=== PATIENT | female | born 1965 | race Hispanic/Latino ===

== ENCOUNTER → 2016-09-14 | Outpatient (CLI) | payer BC ==
--- NOTE | 2016-09-14 13:31 | Diagnostic Imaging Report ---
PROCEDURE: US Thyroid. TECHNIQUE: Multiple real-time grayscale images were obtained of the thyroid in various projections. INDICATION: Thyroid nodule. FINDINGS: The right thyroid lobe is 4.6 x 1.8 x 1.8 cm. The left lobe is 4.3 x 1.8 x 1.5 cm. The thyroid gland is homogeneous with no focal lesion seen. When compared to 06/08/15 exam, previously seen colloid cyst has resolved. No thyroid nodule is seen at this time. IMPRESSION: Unremarkable exam. Dictated by: Dictated on workstation # [id number]
== END ==
LOC: RAD 10:55
PROVIDERS: ATTEND Nurse Practitioner Family
DX: E05.90 Thyrotoxicosis, unspecified without thyrotoxic crisis or storm (principal); E04.1 Nontoxic single thyroid nodule
CPT/HCPCS: 76536

== ENCOUNTER 2017-03-21 04:32 | Emergency (ER) | payer SELFPAY ==
[~2017-03-21] VITALS: Ht 162.6 cm; Wt 87.1 kg
[2017-03-21] MEDS ORDERED: INDLA120 (04:49)
[2017-03-21] MEDS ORDERED: CITA10TA7 (04:49)
[2017-03-21] MEDS ORDERED: PRAV40TA2 (04:49)
[2017-03-21] MEDS ORDERED: PROP60CA (04:49)
[2017-03-21] MEDS ORDERED: NF-METHI10 (04:49)
[2017-03-21] MEDS ORDERED: LACTATED RINGERS 1,000 ML IV ONE (04:53)
[2017-03-21] MEDS ORDERED: ONDANSETRON 4 MG/2 ML (SDV) Z0FRAN IVP ONE (05:00)
[2017-03-21] MEDS ORDERED: HYOSCYAMINE 0.125 MG (LEVSIN) TAB SL ONE (05:00)
[2017-03-21 05:16] LABS: BASOPHILS % (AUTO) 0 % (0-10); EOSINOPHILS % (AUTO) 0 % (0-10); LYMPHOCYTES # (AUTO) 0.6 X 10^3 (1.0-4.0); LYMPHOCYTES % (AUTO) 5 % (12-44); MEAN CORPUSCULAR HEMOGLOBIN 31 PG (25-34); MEAN CORPUSCULAR HGB CONC 34 G/DL (32-36); MEAN CORPUSCULAR VOLUME 89 FL (80-99); MONOCYTES # (AUTO) 0.3 X 10^3 (0.0-1.0); MONOCYTES % (AUTO) 2 % (0-12); NEUTROPHILS # (AUTO) 11.9 X 10^3 (1.8-7.8); NEUTROPHILS % (AUTO) 93 % (42-75); PLATELET COUNT 224 10^3/uL (130-400); RED BLOOD COUNT 4.43 10^6/uL (4.35-5.85); RED CELL DISTRIBUTION WIDTH 12.1 % (10.0-14.5); WHITE BLOOD COUNT 12.8 10^3/uL (4.3-11.0)
--- NOTE | 2017-03-21 05:17 | ED GI ---
General Chief Complaint: Abdominal/GI Problems Stated Complaint: NAUSEA,DIARRHEA,VOMITING Nursing Triage Note: N/V/D Sepsis Screen: No Definite Risk Source of Information: Patient, Family Exam Limitations: Language Barrier History of Present Illness Time Seen By Provider: 04:45 Initial Comments This 51-year-old woman presents to the emergency room with complaints of vomiting, diarrhea, and epigastric discomfort since last night. Her provides much of the history as he speaks Faroese. Her epigastric pain is mild and generally when she is vomiting. She is afebrile. Her reports she has had numerous episodes of vomiting and diarrhea. Allergies and Home Medications Allergies Coded Allergies: No Known Drug Allergies (Unverified , 03/21/17) Home Medications Citalopram Hydrobromide 10 Mg Tablet, (Reported) Hyoscyamine Sulfate 0.125 Mg Tab.subl, 0.125 MG SL Q4H PRN for DIARRHEA, #10 Prescribed by: TANESHA VELIZ on 03/21/17 0607 Methimazole 10 Mg Tab, (Reported) Ondansetron 4 Mg Tab.rapdis, 4 MG SL Q4H PRN for NAUSEA/VOMITING-1ST LINE, #10 Prescribed by: TANESHA VELIZ on 03/21/17 0607 Pravastatin Sodium 40 Mg Tablet, (Reported) Propranolol HCl 120 Mg Cap, (Reported) Propranolol HCl 60 Mg Cap.sa.24h, (Reported) Review of Systems Constitutional: no symptoms reported EENTM: No Symptoms Reported Respiratory: No Symptoms Reported Cardiovascular: No Symptoms Reported Gastrointestinal: See HPI Genitourinary: No Symptoms Reported Musculoskeletal: no symptoms reported Skin: no symptoms reported Psychiatric/Neurological: No Symptoms Reported Endocrine: No Symptoms Reported Past [id number] Hx Patient Social History Alcohol Use: Denies Use Recreational Drug Use: No Smoking Status: Never a Smoker 2nd Hand Smoke Exposure: No Recent Foreign Travel: No Contact w/Someone Who Travel: No Recent Infectious Disease Expo: No Recent Hopitalizations: No Immunizations Up To Date Tetanus Booster (TDap): Unknown Seasonal Allergies Seasonal Allergies: No Surgeries History of Surgeries: Yes Surgeries: Section Respiratory History of Respiratory Disorde: No Cardiovascular History of Cardiac Disorders: Yes Cardiac Disorders: High Cholesterol, Hypertension Neurological History of Neurological Disord: No Reproductive System : No FINISH PAINTER History: Menopausal Genitourinary History of Genitourinary Disor: No Gastrointestinal History of Gastrointestinal Di: No Musculoskeletal History of Musculoskeletal Dis: Yes Musculoskeletal Disorders: Arthritis Endocrine History of Endocrine Disorders: No HEENT History of HEENT Disorders: No Cancer History of Cancer: No Psychosocial History of Psychiatric Problem: Yes Behavioral Health Disorders: Depression Integumentary History of Skin or Integumenta: No Blood Transfusions History of Blood Disorders: No Physical Exam Vital Signs VS - Last 72 Hours, by Label 03/21/17 04:49 Temp 98.0 Pulse 78 Resp 16 B/P (MAP) 133/90 (104) Pulse Ox 99 O2 Delivery Room Air Capillary Refill : Less Than 3 Seconds General Appearance: WD/WN, no apparent distress HEENT: normal ENT inspection, other (oropharynx somewhat dry) Neck: normal inspection Respiratory: lungs clear, normal breath sounds, no respiratory distress, no accessory muscle use Cardiovascular: regular rate, rhythm, no edema, no murmur Gastrointestinal: normal bowel sounds, soft, tenderness (minimal in the epigastric region) Extremities: normal inspection, no pedal edema Neurologic/Psychiatric: customer development representative II-XII nml as tested, no motor/sensory deficits, alert, normal mood/affect, oriented x 3 Skin: normal color, warm/dry Progress/Results/Core Measures Results/Orders Lab Results Laboratory Tests Test 03/21/17 05:00 Range/Units White Blood Count 12.8 H 4.3-11.0 10^3/uL Red Blood Count 4.43 4.35-5.85 10^6/uL Hemoglobin 13.5 11.5-16.0 G/DL Hematocrit 40 35-52 % Mean Corpuscular Volume 89 80-99 FL Mean Corpuscular Hemoglobin 31 25-34 PG Mean Corpuscular Hemoglobin Concent 34 32-36 G/DL Red Cell Distribution Width 12.1 10.0-14.5 % Platelet Count 224 130-400 10^3/uL Mean Platelet Volume 10.0 7.4-10.4 FL Neutrophils (%) (Auto) 93 H 42-75 % Lymphocytes (%) (Auto) 5 L 12-44 % Monocytes (%) (Auto) 2 0-12 % Eosinophils (%) (Auto) 0 0-10 % Basophils (%) (Auto) 0 0-10 % Neutrophils # (Auto) 11.9 H 1.8-7.8 X 10^3 Lymphocytes # (Auto) 0.6 L 1.0-4.0 X 10^3 Monocytes # (Auto) 0.3 0.0-1.0 X 10^3 Eosinophils # (Auto) 0.0 0.0-0.3 10^3/uL Basophils # (Auto) 0.0 0.0-0.1 10^3/uL Sodium Level 137 135-145 MMOL/L Potassium Level 5.1 H 3.6-5.0 MMOL/L Chloride Level 103 98-107 MMOL/L Carbon Dioxide Level 22 21-32 MMOL/L Anion Gap 12 5-14 MMOL/L Blood Urea Nitrogen 21 H 7-18 MG/DL Creatinine 0.79 0.60-1.30 MG/DL Estimat Glomerular Filtration Rate > 60 BUN/Creatinine Ratio 27 Glucose Level 151 H 70-105 MG/DL Calcium Level 9.4 8.5-10.1 MG/DL Total Bilirubin 1.5 H 0.1-1.0 MG/DL Aspartate Amino Transf (AST/SGOT) 29 5-34 U/L Alanine Aminotransferase (ALT/SGPT) 22 0-55 U/L Alkaline Phosphatase 86 40-136 U/L Total Protein 8.8 H 6.4-8.2 GM/DL Albumin 4.4 3.2-4.5 GM/DL Lipase 20 8-78 U/L My Orders Orders - TANESHA ALEXANDRA MD Ondansetron Injection (Zofran Injectio (03/21/17 05:00) Hyoscyamine Sl Tablet (Levsin Sl Tablet) (03/21/17 05:00) Saline Lock/Iv-Start (03/21/17 04:53) Lactated Ringers (Lr 1000 Ml Iv Solution (03/21/17 04:53) Cbc With Automated Diff (03/21/17 04:53) Comprehensive Metabolic Panel (03/21/17 04:53) Lipase (03/21/17 04:53) Medications Given in ED Current Medications Medications Dose Ordered Sig/Lucinda Route Start Time Stop Time Status Last Admin Dose Admin Hyoscyamine Sulfate 0.25 mg ONCE ONCE SL 03/21/17 05:00 03/21/17 05:01 DC 03/21/17 05:08 0.25 MG Lactated Ringer's 1,000 ml @ 0 mls/hr Q0M ONCE IV 03/21/17 04:53 03/21/17 04:54 DC 03/21/17 05:09 0 MLS/HR Ondansetron HCl 8 mg ONCE ONCE IVP 03/21/17 05:00 03/21/17 05:01 DC 03/21/17 05:08 8 MG Vital Signs/I&O Vital Sign - Last 12Hours 03/21/17 04:49 Temp 98.0 Pulse 78 Resp 16 B/P (MAP) 133/90 (104) Pulse Ox 99 O2 Delivery Room Air Blood Pressure Mean: 104 Progress Note #1: Time: 05:17 Progress Note Patient is receiving the Levsin, Zofran, and IV fluids. Labs are pending. Progress Note #2: Time: 06:05 Progress Note Patient was feeling significantly improved after medications and IV fluids. She was dismissed home with prescriptions. Departure Impression Impression: Primary Impression: Nausea vomiting and diarrhea Disposition: HOME, SELF-CARE Condition: Improved Departure-Patient Inst. Decision time for Depature: 05:59 Referrals: MIGEL WORRELL DO (PCP/Family) Primary Care Physician Patient Instructions: Diarrhea in Adolescents and Adults, Nausea and Vomiting, Adult Add. Discharge Instructions: Drink plenty of clear liquids including water, Gatorade, etc. Use your medications as prescribed. Gradually advance your diet as tolerated. All discharge instructions reviewed with patient and/or family. Voiced understanding. Scripts Ondansetron (Zofran Odt) 4 Mg Tab.rapdis 4 MG SL Q4H Y for NAUSEA/VOMITING-1ST LINE, #10 TAB Prov: TANESHA ALEXANDRA MD 03/21/17 Hyoscyamine Sulfate (Levsin-Sl) 0.125 Mg Tab.subl 0.125 MG SL Q4H Y for DIARRHEA, #10 TAB Prov: TANESHA ALEXANDRA MD 03/21/17 TANESHA ALEXANDRA MD Mar 21, 2017 05:17
[2017-03-21 05:37] LABS: ALANINE AMINOTRANSFERASE 22 U/L (0-55); ALBUMIN 4.4 GM/DL (3.2-4.5); ANION GAP 12 MMOL/L (5-14); ASPARTATE AMINO TRANSFERASE 29 U/L (5-34); BILIRUBIN,TOTAL 1.5 MG/DL (0.1-1.0); BLOOD UREA NITROGEN 21 MG/DL (7-18); BUN/CREATININE RATIO 27; CALCIUM 9.4 MG/DL (8.5-10.1); CARBON DIOXIDE 22 MMOL/L (21-32); CHLORIDE 103 MMOL/L (98-107); CREATININE SERUM 0.79 MG/DL (0.60-1.30); GFR ESTIMATED > 60; GLUCOSE 151 MG/DL (70-105); LIPASE 20 U/L (8-78); POTASSIUM 5.1 MMOL/L (3.6-5.0); SODIUM 137 MMOL/L (135-145); TOTAL PROTEIN 8.8 GM/DL (6.4-8.2)
[2017-03-21] MEDS ORDERED: ONDA4TAB8 SL (06:07)
[2017-03-21] MEDS ORDERED: HYOS0.1283 SL (06:07)
[2017-03-21 06:11] VITALS: BP 123/87
== END 2017-03-21 06:11 | disposition home or self-care (01) ==
LOC: EDUNIT# 04:32 → ER 04:35
DX: R11.2 Nausea with vomiting, unspecified (principal); R19.7 Diarrhea, unspecified; F32.9 Major depressive disorder, single episode, unspecified; E78.00 Pure hypercholesterolemia, unspecified; I10 Essential (primary) hypertension; Z87.59 Personal history of other complications of pregnancy, childbirth and the puerperium
CPT/HCPCS: 36415; 80053; 83690; 85025